=== PATIENT | female | born 1995 | race Two or more races ===

== ENCOUNTER 2023-10-18 00:58 | Emergency (ER) | payer OTHER ==
[~2023-10-18] VITALS: Ht 151.1 cm; Wt 52.2 kg
[2023-10-18] MEDS ORDERED: PROZAC20 MG PO (01:07)
[2023-10-18] MEDS ORDERED: ORPHENADRINE CITRATE 30 MG/ML AMPUL IV STA (02:01)
[2023-10-18] MEDS ORDERED: ACETAMINOPHEN 500 MG GEL..CAP PO STA (02:02)
[2023-10-18] MEDS ORDERED: ORPHENADRINE CITRATE 30 MG/ML AMPUL ONE (02:12)
[2023-10-18] MEDS ORDERED: ACETAMINOPHEN 500 MG GEL..CAP PO ONE (02:13)
[2023-10-18 03:10] LABS: HEMATOCRIT 31.7 % (36.0-45.00); MEAN CELL VOLUME 73.4 fL (80.00-100.00); MEAN CORPUSCULAR HGB CONC 32.7 g/dl (32.0-36.0); PLATELET COUNT 255 K/uL (150-450); RED BLOOD COUNT 4.32 M/uL (4.00-6.00); RED CELL DISTRIBUTION WIDTH 16.1 % (11.5-14.5)
[2023-10-18 03:12] LABS: ALBUMIN 3.7 gm/dL (3.4-5.0); ALKALINE PHOSPHATASE 43 U/L (50-136); ALT/SGPT 15 U/L (12-78); ANION GAP 10 (10.0-20.0); AST/SGOT 9 U/L (15-37); BLOOD UREA NITROGEN 14 mg/dL (7-18); BUN CREA RATIO 16 (7.0-25.0); CALCIUM 8.6 mg/dL (8.5-10.1); CARBON DIOXIDE 27 mEq/L (21-32); CHLORIDE 107 mmol/L (98-107); CREATININE SERUM 0.86 mg/dL (0.55-1.02); GFR 78.57; GLOBULINA 3.7 G/DL (2.4-3.5); GLUCOSE FASTING 97 mg/dL (65-100); OSMOLALITY SERUM 280 MOSM/KG (275-295); SODIUM 140 mmol/L (136-145); TOTAL PROTEIN 7.4 gm/dL (6.4-8.2)
[2023-10-18 03:33] LABS: HCG QUANTITATIVE < 1 mUI/mL (1-3)
[2023-10-18 03:42] LABS: HEMOGLOBIN 10.4 g/dL (12.0-15.00)
[2023-10-18 06:00] LABS: URINE APPEARANCE Clear; URINE BILIRRUBIN Negative (NEGATIVE); URINE BLOOD Negative; URINE COLOR Yellow; URINE GLUCOSE Negative (NEGATIVE); URINE KETONE Trace (NEGATIVE); URINE LEUKOCYTE Negative; URINE NITRATE Negative; URINE PROTEIN Negative (NEGATIVE); URINE UROBILINOGEN 0.2 E.U./dl
[2023-10-18 06:06] LABS: URINE BACTERIA 390.5 uL (0.0-1933); URINE EPITHELIAL CELLS 19.9 uL (0.0-38.8); URINE RBC 5.6 uL (0.0-20.8); URINE WBC 9.2 uL (0.0-23.2)
[2023-10-18] MEDS ORDERED: NORFLEX100MG PO (07:10)
[2023-10-18 07:34] VITALS: BP 83/53; O2SAT 100
== END 2023-10-18 07:36 ==
LOC: ER 00:59
PROVIDERS: General Practice
DX: R51.9 Headache, unspecified (principal); F41.8 Other specified anxiety disorders; R11.0 Nausea; Z20.822 Contact with and (suspected) exposure to COVID-19